=== PATIENT | male | born 1955 | race Caucasian/White ===

== ENCOUNTER → 2024-05-24 10:30 | Outpatient (CLI) | payer MEDICARE, MEDICAID, SELFPAY ==
--- NOTE | 2024-05-24 10:35 | DI.CT.S_ITS ---
PROCEDURE: CT CHEST ABD PEL W CON INDICATIONS: MALIGNANT NEOPLASM OF SIGMOID COLON TECHNIQUE: After the administration of intravenous contrast, 5 mm thick sections acquired from the lung apices to the symphysis. 5 mm coronal and sagittal reformats were performed, with additional 7 mm MIP reformats through the lungs. For radiation dose reduction, the following was used: automated exposure control, adjustment of mA and/or kV according to patient size. COMPARISON: None. FINDINGS: Image quality: Excellent. CHEST: Lower Neck: No enlarged lymph nodes. Thyroid: No thyroid nodules which require sonographic follow up, per consensus guidelines. Axillae: No enlarged lymph nodes. Chest Wall: Gynecomastia lobe Lungs and Pleura: No pneumothorax or pleural effusions. No consolidation or suspicious nodules. Heart: Heart size is normal. No pericardial effusion. Prior CABG. Thoracic Vessels: The aorta and pulmonary arteries demonstrate normal size. Mediastinum and Ranjana: No enlarged lymph nodes. Esophagus: No wall thickening. No hiatal hernia. ABDOMEN: Liver: No solid mass. Hepatic cysts. Additional subcentimeter hypoattenuating lesions, too small to characterize by CT. Gallbladder: No radiopaque gallstones or wall thickening. Biliary ducts: No biliary dilation. Pancreas: No ductal dilation. Spleen: Multiple hypoattenuating splenic lesions which are mostly subcentimeter. Additional 1 centimeter hyperattenuating lesion along the posterior margin (series 2, image 51). Adrenal Glands: No adrenal nodules. Kidneys and Ureters: There is moderate, chronic left-sided hydronephrosis with urothelial wall thickening. Wedge-shaped regions of hypoattenuation of the left kidney are concerning for pyelonephritis. lobulation. Atrophic kidneys. Stomach and Bowel: Normal colonic caliber, without significant wall thickening. Partial colectomy, with surgical anastomosis in the deep pelvis. Colonic diverticulosis without evidence of diverticulitis. Peritoneum: No abnormal intraperitoneal fluid. No free air. Ventral Wall: No significant ventral hernia. Abdominal Nodes: No retroperitoneal or mesenteric adenopathy by size criteria. Vessels: Aorta and inferior vena cava are normal in size. PELVIS: Pelvic Organs: Unremarkable. Bladder: No bladder wall thickening, accounting for underdistention. Pelvic Nodes: No enlarged lymph nodes. Miscellaneous: No inguinal hernias are seen. Bones: No aggressive osseous abnormality. IMPRESSION: Partial colectomy, with surgical anastomosis in the deep pelvis. No measurable disease. Suspected left-sided pyelonephritis, without abscess. Correlate with urinalysis. Call report was initiated for this finding. Multiple hypoattenuating splenic lesions, which may indicate lymphoma or sarcoidosis, among other entities. Consider further evaluation with MRI with contrast (hepatic mass protocol). Dictated by: Dinh Burns M.D. on 05/30/2024 at 19:41 Approved by: Dinh Burns M.D. on 05/30/2024 at 19:52
[2024-05-24 11:02] LABS: Estimated Glomerular Filt Rate 35 mL/min (>60)
== END ==
PROVIDERS: Radiology Diagnostic Radiology; Referring Provider Surgery; Visit Provider Surgery
DX: C18.7 Malignant neoplasm of sigmoid colon (principal); D73.89 Other diseases of spleen; K76.89 Other specified diseases of liver; K57.90 Diverticulosis of intestine, part unspecified, without perforation or abscess without bleeding; N13.30 Unspecified hydronephrosis; N26.1 Atrophy of kidney (terminal); Z90.49 Acquired absence of other specified parts of digestive tract; Z95.1 Presence of aortocoronary bypass graft
CPT/HCPCS: 36415; 71260; 74177; 82565; Q9967